=== PATIENT | male | born 1955 | race Caucasian/White ===

== ENCOUNTER 2019-09-12 06:24 | Day surgery (SDC) | payer OTHER ==
[2019-09-10 10:05] VITALS: BMI 23.3
[~2019-09-12 06:24] MED LIST: ALPRAZolam 0.25 MG TAB PO PRN; ALPRAZolam 0.5 MG TAB PO PRN; ASPIRIN 325 MG TAB PO STA; NITROGLYCERIN SL TABS 0.4 MG TAB SUBLINGUAL PRN; SODIUM CHLORIDE 0.9% 1,000 ML in EMPTY BAG 1 BAG IV ONE
[2019-09-12] MEDS ORDERED: SODIUM CHLORIDE 0.9% 1,000 ML IV ONE (07:00)
[2019-09-12 07:15] VITALS: RESP 16; TEMP 97.7
[2019-09-12] MEDS ORDERED: fentaNYL (PF) 50 MCG/ML 2 ML AMP ONE (07:23)
[2019-09-12] MEDS ORDERED: fentaNYL (PF) 50 MCG/ML 2 ML AMP IV ONE (07:36)
[2019-09-12] MEDS ORDERED: LIDOCAINE 1% INJ 10MG/ML (20 ML MDV) SQ ONE (07:45)
[2019-09-12] MEDS: VERAPAMIL SYRINGE (5 MG/10 ML) INTRAARTER ONE ×2 (07:47→08:05)
[2019-09-12] MEDS ORDERED: HEPARIN SODIUM 1,000 UN/ML (10ML VL) ONE (07:58)
[2019-09-12] MEDS ORDERED: HEPARIN SODIUM 1,000 UN/ML (10ML VL) IV ONE (08:02)
[2019-09-12] MEDS ORDERED: IOPAMIDOL-370 100ML BTL INJ ONE (08:06)
[2019-09-12] MEDS ORDERED: RX INFO: IV CONTRAST WAS GIVEN 1 EACH MISC MISCELLANE PRN (08:21)
[2019-09-12] MEDS ORDERED: SODIUM CHLORIDE 0.9% 1,000 ML IV SCH (08:30)
[2019-09-12] MEDS ORDERED: AMIODARONE 200 MG TAB PO SCH (09:00)
[2019-09-12] MEDS ORDERED: METOPROLOL TARTRATE 25 MG TAB PO SCH (09:00)
[2019-09-12] MEDS ORDERED: ASPIRIN 81 MG PO SCH (09:00)
[2019-09-12] MEDS ORDERED: BENAZEPRIL HCL 20 MG PO SCH (09:00)
--- NOTE | 2019-09-12 09:30 | CC ---
CARDIAC CATHETERIZATION REPORT Mr. Humphreys is a 64-year-old male with no prior history of documented coronary artery disease who presented recently with evidence of congestive heart failure and severe cardiomyopathy. In view of that, recommendation made regarding cardiac catheterization. The procedures, risks, and complication were discussed with the patient, who is in full understanding and agreement. PROCEDURE: Patient was brought to slab tripper in a fasting semi-sedated state after receiving fentanyl and Benadryl and achieving moderate conscious sedated state. Using Xylocaine anesthesia and Seldinger technique, a 6-Scottish sheath was introduced in the right radial artery. Selective right and left coronary angiography performed using 5-Scottish 3.5 bend right and left Kandis catheter, multiple views of the coronary artery including hemiaxial views obtained. Following that, a 5-Scottish tight pigtail catheter was introduced in the left ventricle and a 30-degree SOOD view of the left ventricle was obtained. Following that, catheter and sheath were removed. Hemostasis was obtained with deployment of a TR band. There was no immediate complication. Patient is returned to his room in stable condition. Of note, the patient received 4000 units of intravenous heparin as well as intra-arterial verapamil. FINDINGS: LEFT MAIN: This is a short size vessel, large in caliber, bifurcating into left circumflex, left anterior descending artery. Left main coronary artery has no evidence of high-grade stenosis. LEFT ANTERIOR DESCENDING ARTERY: This is a large-sized vessel, reaching toward the apex. Tapers down distal third, giving rise to 2 diagonal branches. The left anterior descending artery as well as branches have no evidence of obstructive coronary artery disease. LEFT CIRCUMFLEX: This is a nondominant large size vessel, giving rise to 3 obtuse marginal branches, the second and third one are the largest in caliber. The left circumflex as well as branches have no evidence of obstructive coronary artery disease. RIGHT CORONARY ARTERY: This is a moderately-sized, dominant vessel bifurcating into PDA and posterolateral segment and branches. The right coronary artery as well as branches have no evidence of obstructive coronary artery disease. LEFT VENTRICULOGRAM: Left ventriculogram was performed in 30-degree SOOD view and revealed dilated left ventricle with severe global hypokinesis. The estimated ejection fraction is 15%. There was no significant mitral regurgitation. HEMODYNAMICS: There was no gradient across the aortic valve. The left ventricular end- diastolic pressure was 20-24 mmHg. CONCLUSION: 1. Normal coronary arteries. 2. Severely impaired left ventricular systolic function. RECOMMENDATION: In view of finding anatomy, I recommend to continue present medical therapy with optimizing his treatment and re-evaluating his left ventricular systolic function and if there is no improvement, the patient will be a candidate for ICD implantation. Those findings and recommendation were discussed with the patient and his family and they are in full understanding and agreement. Duration of procedure is 22 minutes. LAUREN / DUNG: [id number] /
--- NOTE | 2019-09-12 09:30 | LTR ---
DATE OF SERVICE: 09/12/2019 RE: Carlos Humphreys Dear Dr. Mejía; I had the pleasure to perform cardiac catheterization on Mr. Humphreys at [facility] on September 12, 2019 and a fully copy of the procedure note will be forwarded to you. In brief, he was found to have no evidence of obstructive coronary artery disease with severely impaired left ventricular systolic function, consistent with nonischemic cardiomyopathy. At this time, I will continue to maximize his treatment and if there is no improvement in his left ventricular systolic function, he will be candidate to undergo ICD Bi V implantation. I will keep you updated on his progress and thank you again for allowing me to participate in this patient's personal care. Please feel free to call for any questions. Sincerely yours, MD LAUREN Rogers / DUNG: [id number] /
[2019-09-12 11:44] VITALS: BP 101/62; PULSE 59
[2019-09-12] MEDS ORDERED: SPIRONOLACTONE 25 MG TAB PO SCH (13:30)
[2019-09-12] MEDS ORDERED: PRAVASTATIN SODIUM 20 MG TAB PO SCH (21:00)
== END 2019-09-12 11:47 | disposition home or self-care (01) ==
LOC: CATHCVL 06:24
PROVIDERS: ATTEND Internal Medicine Interventional Cardiology
DX: I11.0 Hypertensive heart disease with heart failure (principal); I50.22 Chronic systolic (congestive) heart failure; I42.8 Other cardiomyopathies; R06.00 Dyspnea, unspecified; R60.9 Edema, unspecified; E78.2 Mixed hyperlipidemia; Z82.49 Family history of ischemic heart disease and other diseases of the circulatory system; H40.9 Unspecified glaucoma; H31.8 Other specified disorders of choroid; H35.30 Unspecified macular degeneration; Z87.891 Personal history of nicotine dependence; Z79.82 Long term (current) use of aspirin; Z79.899 Other long term (current) drug therapy
CPT/HCPCS: 93458; C1769 ×2; C1894; J2001; J3010; J1644; Q9967

== ENCOUNTER → 2020-01-29 | Outpatient (CLI) | payer OTHER ==
[2020-01-29 16:23] LABS: HCT 42.4 % (39.0-53.0); HGB 14.3 gm/dL (13.0-17.5); MCHC 33.6 g/dL (31.0-37.0); MCV 100.9 fL (80.0-100.0); Mean Platelet Volume 7.1; Platelet Count 286 k/uL (150-450); RDW 12.9 % (11.5-15.5); WBC 8.7 k/uL (3.8-10.6)
[2020-01-29 17:52] LABS: Magnesium 1.9 mg/dL (1.6-2.3); Potassium 5.3 mmol/L (3.5-5.1)
== END | disposition home or self-care (01) ==
LOC: LABPAT 16:04
PROVIDERS: ATTEND Internal Medicine Clinical Cardiac Electrophysiology
DX: Z01.818 Encounter for other preprocedural examination (principal); I42.8 Other cardiomyopathies
CPT/HCPCS: 80051; 82565; 83735; 84520; 85027

== ENCOUNTER 2020-02-02 11:54 | Day surgery (SDC) | payer OTHER ==
[2020-01-30 09:31] VITALS: BMI 22.2
[~2020-02-02 11:54] MED LIST changes: -ALPRAZolam 0.25 MG TAB PO PRN; -ALPRAZolam 0.5 MG TAB PO PRN; -ASPIRIN 325 MG TAB PO STA; -NITROGLYCERIN SL TABS 0.4 MG TAB SUBLINGUAL PRN; +SODIUM CHLORIDE 0.9% 1,000 ML IV SCH; -SODIUM CHLORIDE 0.9% 1,000 ML in EMPTY BAG 1 BAG IV ONE
[2020-02-02] MEDS ORDERED: SODIUM CHLORIDE 0.9% 1,000 ML IV ONE (12:23)
[2020-02-02] MEDS ORDERED: ceFAZolin 1,000 MG in SODIUM CHLORIDE 0.9% IRRIGATIO 250 ML IRRIGATION ONE (14:00)
[2020-02-02] MEDS ORDERED: PHENYLEPHRINE 10 MG/ML VIAL ONE (15:16)
[2020-02-02] MEDS ORDERED: fentaNYL (PF) 50 MCG/ML 2 ML AMP ONE (15:16)
[2020-02-02] MEDS ORDERED: PROPOFOL 10 MG/ML 20 ML VIAL IV ONE (15:16)
[2020-02-02] MEDS ORDERED: MIDAZOLAM 2 MG/2 ML VIAL ONE (15:16)
[2020-02-02] MEDS ORDERED: IOPAMIDOL-250 50ML BTL IV ONE (15:29)
[2020-02-02] MEDS ORDERED: LIDOCAINE 1% INJ 10MG/ML (20 ML MDV) ONE (15:42)
[2020-02-02] MEDS ORDERED: LIDOCAINE 1% INJ 10MG/ML (20 ML MDV) IV ONE (16:01)
[2020-02-02] MEDS ORDERED: LIDOCAINE 1% INJ 10MG/ML (20 ML MDV) SQ ONE ×2 (16:01→16:32)
[2020-02-02] MEDS ORDERED: ACETAMINOPHEN IV (For NPO) 1,000 MG in EMPTY BAG 1 BAG IVPB ONE (17:05)
[2020-02-02] MEDS ORDERED: ACETAMINOPHEN TAB 325 MG TAB PO PRN (18:05)
--- NOTE | 2020-02-02 18:44 | XR ---
EXAMINATION TYPE: XR chest 1V portable DATE OF EXAM: 02/02/2020 COMPARISON: NONE HISTORY: Check lead placement TECHNIQUE: Single view FINDINGS: Heart is normal. Lungs are clear of infiltrate. There is no heart failure. There is left ax illary pacemaker. There are chest leads. There is no pleural effusion. IMPRESSION: No active cardiopulmonary disease. Normal heart.
[2020-02-02 18:53] VITALS: RESP 18
--- NOTE | 2020-02-02 19:40 | CE ---
CARDIAC ELECTROPHYSIOLOGY REPORT Carlos Humphreys is a 64-year-old male patient with severe nonischemic cardiomyopathy, on medical treatment for greater than 3 months, but without improvement in LV systolic function. He also has a history of ventricular arrhythmias and is on oral amiodarone. He is brought in for a biventricular ICD implant for primary prevention of sudden cardiac and management of heart failure symptoms. He has an underlying wide QRS with a left bundle branch block. The patient was brought to the EP lab in a fasting state. Written informed consent was obtained prior to the procedure. The left shoulder area was prepped and draped as per protocol. Lidocaine 1% was used for local anesthesia. A 4 cm incision was made parallel to the deltopectoral groove, about 1.5 cm medial to it. The incision was carried down to the level of the pectoralis muscle. A subfascial pocket was made. Hemostasis was assured. The left axillary vein was accessed at 3 separate points under fluoroscopy, and via appropriately-sized introducer sheaths, leads were positioned in the right heart. The atrial lead was screwed into the right atrial appendage. The RV lead was screwed into the RV septum. This was a significantly qxzuvoy-gdcjoexlf-gyelzub heart, and RV lead placement was challenging, but it was performed successfully. Physiologic septal pacing was attempted and a distal site was selected for final positioning, and the lead was screwed in. Nonselective capture was noted. A proximal site was selected with a clear His signal selective capture but with a wide QRS without normalization of the QRS at the distal site. There was more normalization of the QRS with physiologic septal pacing/His bundle pacing. The actual QRS width was less than 120 milliseconds, but with being nonselective, there was an additional delta wave. The atrial lead was a Medtronic model #5076, 52 cm in length and serial #[id number], pacing threshold 0.9 V at 0.5 milliseconds, pacing impedance of 768 ohms, P-waves 1.8 mV. Ten-volt test was negative. The RV lead was a Medtronic model #6935M, 62 cm length and serial #[id number]. It was screwed in the septum. R-waves were 9.2 mV, pacing impedance 568 ohms and pacing threshold 0.6 V at 0.5 milliseconds. Ten-volt test was negative. The His bundle lead thresholds were 1.1 V at 1 millisecond, pacing impedance of 827 ohms. Nonselective capture was noted all along. The device implanted was a Medtronic biventricular ICD Amplia MRI, model #DTMB 1D4, serial #[id number]. The leads and the generator were then placed in the subfascial pocket. The wound was closed in 3 layers and dressed per protocol. RESULT: Successful biventricular ICD implantation with physiologic septal pacing and narrowing of the QRS with nonselective capture with excellent thresholds. ICD placement was challenging on account of significantly utrfgvc-hfrohuoil-qewgrqk heart, but it was performed successfully. Patient tolerated the procedure well without any acute complications. The device was then programmed to a VT zone of 176 beats per minute, VF zone at 214 beats per minute. Appropriate antitachycardia pacing, cardioversion and defibrillation were programmed. AV sequential pacing with physiologic septal pacing with rate responsiveness was programmed. MMODL / IJN: [id number] /
[2020-02-02 20:46] VITALS: TEMP 98
[2020-02-02 21:56] VITALS: BP 101/59; PULSE 66
== END 2020-02-02 22:37 | disposition home or self-care (01) ==
LOC: CATHEP 11:54 → 1SOBS 18:00 → CATHEP 22:37
PROVIDERS: ATTEND Internal Medicine Clinical Cardiac Electrophysiology
DX: I42.8 Other cardiomyopathies (principal); I49.3 Ventricular premature depolarization; I44.7 Left bundle-branch block, unspecified; I44.0 Atrioventricular block, first degree; I11.0 Hypertensive heart disease with heart failure; I50.22 Chronic systolic (congestive) heart failure; Q23.1 Congenital insufficiency of aortic valve; E78.5 Hyperlipidemia, unspecified; Z72.0 Tobacco use; Z79.82 Long term (current) use of aspirin; Z79.899 Other long term (current) drug therapy; Z82.49 Family history of ischemic heart disease and other diseases of the circulatory system; Z98.890 Other specified postprocedural states
CPT/HCPCS: 33225; 33249; 71045; C1769 ×5; C1892; C1887; C1898; C1895; C1882; J2250; J2370; J0690 ×2; J2001; J3010; J0131; J2704; Q9966

== ENCOUNTER 2020-05-14 12:30 | Emergency (ER) | payer OTHER ==
[2020-05-14 12:51] VITALS: RESP 18; TEMP 98.7
--- NOTE | 2020-05-14 14:59 | XR ---
EXAMINATION TYPE: XR chest 2V DATE OF EXAM: 05/14/2020 COMPARISON: 02/02/2020 INDICATION: Dizzy fall chills TECHNIQUE: Frontal and lateral views of the chest are obtained. FINDINGS: The heart size is normal. The pulmonary vasculature is normal. The lungs are clear. Pacemaker overlies the left chest. No pneumothorax is evident. No displaced rib fractures are identified. IMPRESSION: 1. No acute pulmonary process.
[2020-05-14 15:44] LABS: Albumin 4.7 g/dL (3.5-5.0); Calcium 9.4 mg/dL (8.4-10.2); Potassium 5.3 mmol/L (3.5-5.1); Total Bilirubin 1.2 mg/dL (0.2-1.3); Total Protein 8.1 g/dL (6.3-8.2)
[2020-05-14 15:48] LABS: Appearance,Urine Clear (Clear); Bilirubin,Urine Negative (Negative); Blood,Urine Negative (Negative); Color,Urine Yellow; Glucose,Urine (UA) Negative (Negative); Hyaline Casts,Urine 1 /lpf (0-2); Ketones,Urine Trace (Negative); Leukocyte Esterase,Urine Negative (Negative); Mucus,Urine Rare /hpf; Nitrite,Urine Negative (Negative); PH, Urine 5.5 (5.0-8.0); Protein,Urine 1+ (Negative); RBC,Urine 1 /hpf (0-5); Specific Gravity,Urine 1.021 (1.001-1.035); Squamous Epithelial Cell,Urine <1 /hpf (0-4); Urobilinogen,Urine <2.0 mg/dL (<2.0); WBC,Urine <1 /hpf (0-5)
[2020-05-14] MEDS ORDERED: ACETAMINOPHEN TAB 500 MG TAB PO STA (16:01)
[2020-05-14] MEDS ORDERED: ASPIRIN 325 MG TAB PO STA (16:01)
[2020-05-14 16:03] LABS: Basophils # (A) 0.1 k/uL (0-0.2); Basophils % (A) 2 %; Eosinophils % (A) 0 %; HCT 46.1 % (39.0-53.0); HGB 16.1 gm/dL (13.0-17.5); Lymphocytes # (A) 0.6 k/uL (1.0-4.8); Lymphocytes % (A) 11 %; MCH 33.2 pg (25.0-35.0); MCHC 34.9 g/dL (31.0-37.0); MCV 95.3 fL (80.0-100.0); Mean Platelet Volume 8.1; Monocytes # (A) 0.3 k/uL (0-1.0); Monocytes % (A) 6 %; Neutrophils % (A) 77 %; Platelet Count 224 k/uL (150-450); RBC 4.84 m/uL (4.30-5.90); RDW 12.4 % (11.5-15.5); WBC 5.2 k/uL (3.8-10.6)
--- NOTE | 2020-05-14 16:12 | ED ---
General Adult HPI - General Chief complaint: Dizziness Stated complaint: Dizziness Time Seen by Provider: 05/14/20 15:55 Source: patient, family, RN notes reviewed, old records reviewed Mode of arrival: wheelchair Limitations: no limitations - History of Present Illness Initial comments: 65-year-old male presents for evaluation of generalized weakness, fatigue, myalgias. Patient had felt somewhat dizzy and had a fall with minor head trauma approximately 2 days ago. He is seeking medical advice for this fall and his ongoing symptoms over the past 4 days. He has no specific chest pain. He has had a mild cough. Patient is uncertain if he's been exposed to coronavirus. No dyspnea, no recorded fever. - Related Data Home Medications Medication Instructions Recorded Confirmed Aspirin 81 mg PO DAILY 09/10/19 02/02/20 Benazepril HCl [Lotensin] 20 mg PO DAILY 09/10/19 02/02/20 Furosemide [Lasix] 20 mg PO DAILY 09/10/19 02/02/20 Pravastatin Sodium [Pravachol] 20 mg PO HS 09/10/19 02/02/20 Spironolactone [Aldactone] 12.5 mg PO DAILY@1500 09/10/19 02/02/20 Hypertonicity Eye Drops 1 drop BOTH EYES TID 01/30/20 02/02/20 Vit C/E/Zn/Coppr/Lutein/Zeaxan 1 each PO DAILY 01/30/20 02/02/20 [Preservision Areds 2 Softgel] Previous Rx's Medication Instructions Recorded Metoprolol Succinate (ER) [Toprol 50 mg PO DAILY #90 tab 02/02/20 XL] Allergies Allergy/AdvReac Type Severity Reaction Status Date / Time No Known Allergies Allergy Verified 05/14/20 12:48 Review of Systems ROS Statement: Those systems with pertinent positive or pertinent negative responses have been documented in the HPI. ROS Other: All systems not noted in ROS Statement are negative. 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 History of Any Multi-Drug Resistant Organisms: None Reported Past Surgical History: Heart Catheterization, Pacemaker Additional Past Surgical History / Comment(s): colonoscopy Past Anesthesia/Blood Transfusion Reactions: No Reported Reaction Past Psychological History: No Psychological Hx Reported Smoking Status: Former smoker Past Alcohol Use History: Occasional Past Drug Use History: None Reported - Past Family History Mother Family Medical History: No Reported History General Exam Limitations: no limitations General appearance: alert, in no apparent distress Head exam: Present: atraumatic, normocephalic Eye exam: Present: normal appearance, PERRL ENT exam: Present: other (. Abrasion over the bridge of the nose) Neck exam: Present: normal inspection. Absent: tenderness, meningismus Respiratory exam: Present: respiratory distress (Mild tachypnea) Cardiovascular Exam: Present: regular rate, normal rhythm GI/Abdominal exam: Present: soft. Absent: distended, tenderness, guarding, rebound Extremities exam: Present: normal inspection, normal capillary refill. Absent: pedal edema, calf tenderness Neurological exam: Present: alert, oriented X3, CN II-XII intact. Absent: motor sensory deficit Psychiatric exam: Present: normal affect, normal mood Skin exam: Present: warm, dry, intact. Absent: cyanosis, diaphoretic Course Vital Signs 05/14/20 05/14/20 12:48 16:50 Temperature 98.7 F Pulse Rate 98 80 Respiratory 18 18 Rate Blood Pressure 100/75 97/69 O2 Sat by Pulse 97 99 Oximetry EKG Findings - EKG Comments: EKG Findings:: Atrial sensed ventricular paced rhythm rate of 83, NJ interval 216, QRS duration 144, QTC 491 Medical Decision Making - Medical Decision Making 64-year-old male with dizziness, generalized weakness and fatigue. Patient does test positive for coronavirus. Symptoms onset was about 4 days ago. He had a minor fall but did have an abrasion over his nose. Head CT is performed which i s negative for intracranial hemorrhage or mass effect. Chest x-ray negative for pneumonia, no acute findings, no pulmonary edema. EKG is paced rhythm with a history of a nonischemic cardiomyopathy status post pacemaker defibrillator. He has a normal CBC, stable CK D with a creatinine 1.66. He has a minimal troponin elevation of 0.05 with no active chest pain. I did discuss the elevated tropon in and clinical presentation of this patient with Dr. Black covering for cardiology. Given that the patient had a cardiac catheterization in August 2019 which showed no coronary artery disease is felt that this patient would benefit more from monoclonal antibody and discharged home with return parameters that admission. Patient is agreeable with this plan and prefers discharge. He's instructed on the risks of monoclonal antibody and will be transfused in the emergency department. He will monitor his breathing. Return with any change in his respiratory status. - Lab Data Result diagrams: 05/14/20 15:20 05/14/20 15:20 Lab Results 05/14/20 05/14/20 05/14/20 Range/Units 12:53 15:20 15:20 WBC 5.2 (3.8-10.6) k/uL RBC 4.84 (4.30-5.90) m/uL Hgb 16.1 (13.0-17.5) gm/dL Hct 46.1 (39.0-53.0) % MCV 95.3 (80.0-100.0) fL MCH 33.2 (25.0-35.0) pg MCHC 34.9 (31.0-37.0) g/dL RDW 12.4 (11.5-15.5) % Plt Count 224 (150-450) k/uL MPV 8.1 Neutrophils % 77 % Lymphocytes % 11 % Monocytes % 6 % Eosinophils % 0 % Basophils % 2 % Neutrophils # 4.0 (1.3-7.7) k/uL Lymphocytes # 0.6 L (1.0-4.8) k/uL Monocytes # 0.3 (0-1.0) k/uL Eosinophils # 0.0 (0-0.7) k/uL Basophils # 0.1 (0-0.2) k/uL Sodium 133 L (137-145) mmol/L Potassium 5.3 H (3.5-5.1) mmol/L Chloride 97 L (98-107) mmol/L Carbon Dioxide 24 (22-30) mmol/L Anion Gap 12 mmol/L BUN 44 H (9-20) mg/dL Creatinine 1.66 H (0.66-1.25) mg/dL Est GFR (CKD-EPI)AfAm 50 (>60 ml/min/1.73 sqM) Est GFR (CKD-EPI)NonAf 43 (>60 ml/min/1.73 sqM) Glucose 112 H (74-99) mg/dL Plasma Lactic Acid Walter (0.7-2.0) mmol/L Calcium 9.4 (8.4-10.2) mg/dL Total Bilirubin 1.2 (0.2-1.3) mg/dL AST 47 (17-59) U/L ALT 33 (4-49) U/L Alkaline Phosphatase 76 (38-126) U/L Troponin I (0.000-0.034) ng/mL Total Protein 8.1 (6.3-8.2) g/dL Albumin 4.7 (3.5-5.0) g/dL Urine Color Urine Appearance (Clear) Urine pH (5.0-8.0) Ur Specific Chester (1.001-1.035) Urine Protein (Negative) Urine Glucose (UA) (Negative) Urine Ketones (Negative) Urine Blood (Negative) Urine Nitrite (Negative) Urine Bilirubin (Negative) Urine Urobilinogen (<2.0) mg/dL Ur Leukocyte Esterase (Negative) Urine RBC (0-5) /hpf Urine WBC (0-5) /hpf Ur Squamous Epith Cells (0-4) /hpf Hyaline Casts (0-2) /lpf Urine Mucus (None) /hpf Coronavirus (PCR) Detected A (Not Detectd) 05/14/20 05/14/20 05/14/20 Range/Units 15:20 15:20 15:24 WBC (3.8-10.6) k/uL RBC (4.30-5.90) m/uL Hgb (13.0-17.5) gm/dL Hct (39.0-53.0) % MCV (80.0-100.0) fL MCH (25.0-35.0) pg MCHC (31.0-37.0) g/dL RDW (11.5-15.5) % Plt Count (150-450) k/uL MPV Neutrophils % % Lymphocytes % % Monocytes % % Eosinophils % % Basophils % % Neutrophils # (1.3-7.7) k/uL Lymphocytes # (1.0-4.8) k/uL Monocytes # (0-1.0) k/uL Eosinophils # (0-0.7) k/uL Basophils # (0-0.2) k/uL Sodium (137-145) mmol/L Potassium (3.5-5.1) mmol/L Chloride (98-107) mmol/L Carbon Dioxide (22-30) mmol/L Anion Gap mmol/L BUN (9-20) mg/dL Creatinine (0.66-1.25) mg/dL Est GFR (CKD-EPI)AfAm (>60 ml/min/1.73 sqM) Est GFR (CKD-EPI)NonAf (>60 ml/min/1.73 sqM) Glucose (74-99) mg/dL Plasma Lactic Acid Walter 1.3 (0.7-2.0) mmol/L Calcium (8.4-10.2) mg/dL Total Bilirubin (0.2-1.3) mg/dL AST (17-59) U/L ALT (4-49) U/L Alkaline Phosphatase (38-126) U/L Troponin I 0.050 H* (0.000-0.034) ng/mL Total Protein (6.3-8.2) g/dL Albumin (3.5-5.0) g/dL Urine Color Yellow Urine Appearance Clear (Clear) Urine pH 5.5 (5.0-8.0) Ur Specific Chester 1.021 (1.001-1.035) Urine Protein 1+ H (Negative) Urine Glucose (UA) Negative (Negative) Urine Ketones Trace H (Negative) Urine Blood Negative (Negative) Urine Nitrite Negative (Negative) Urine Bilirubin Negative (Negative) Urine Urobilinogen <2.0 (<2.0) mg/dL Ur Leukocyte Esterase Negative (Negative) Urine RBC 1 (0-5) /hpf Urine WBC <1 (0-5) /hpf Ur Squamous Epith Cells <1 (0-4) /hpf Hyaline Casts 1 (0-2) /lpf Urine Mucus Rare H (None) /hpf Coronavirus (PCR) (Not Detectd) Disposition Clinical Impression: COVID-19, Elevated troponin Disposition: HOME SELF-CARE Condition: Fair Instructions (If sedation given, give patient instructions): Dizziness (ED), Coronavirus Disease 2019 (COVID-19) Is patient prescribed a controlled substance at d/c from ED?: No Referrals: Milton Mejía MD [Primary Care Provider] - 1-2 days Oswaldo Soto MD [STAFF PHYSICIAN] - 1-2 days Time of Disposition: 17:23
[2020-05-14] MEDS ORDERED: SODIUM CHLORIDE 0.9% 1,000 ML IV SCH (16:15)
--- NOTE | 2020-05-14 17:11 | CT ---
EXAMINATION TYPE: CT brain aly mendes con DATE OF EXAM: 05/14/2020 COMPARISON: None HISTORY: fall, nasal laceration CT DLP: 1314.6 mGycm Automated exposure control for dose reduction was used. Ventricles have normal size. There is no mass effect nor midline shift. There is no sign of intracran ial hemorrhage. There is 8mm area of hypodensity in the medial left thalamus. Calvarium is intact. Th e skull base is intact. There is fairly normal aeration of the mastoid sinuses. There is some straightening of the cervical spine. There is narrowing of the 5 6 and C6-7 disc spaces with spur formation. There is anterior osteophyte formation also at C4-5. There is multilevel cervic al facet arthropathy more noticeable on the left side. There is no cervical spine compression fractur e. IMPRESSION: Spondylotic changes in the cervical spine. No fracture. Small old lacunar infarct left thalamus. No acute intracranial abnormality.
[2020-05-14] MEDS ORDERED: BAMLANIVIMAB (EUA) 700 MG, ETESEVIMAB (EUA) 1,400 MG in SODIUM CHLORIDE 0.9% 50 ML IVPB ONE (18:15)
[2020-05-14 19:49] VITALS: BP 102/78; PULSE 88
== END 2020-05-14 19:49 | disposition home or self-care (01) ==
LOC: EC 12:30
DX: U07.1 COVID-19 (principal); R79.89 Other specified abnormal findings of blood chemistry; S00.31XA Abrasion of nose, initial encounter; I50.9 Heart failure, unspecified; I11.0 Hypertensive heart disease with heart failure; E78.5 Hyperlipidemia, unspecified; M19.90 Unspecified osteoarthritis, unspecified site; H40.9 Unspecified glaucoma; Z87.891 Personal history of nicotine dependence; Z79.899 Other long term (current) drug therapy; Z79.82 Long term (current) use of aspirin; W18.30XA Fall on same level, unspecified, initial encounter
CPT/HCPCS: 36415; 93005; 80053; 83605; 84484; 85025; 81001; 87635; 71046; 72125; 70450; 99285; 96374; Q0245

== ENCOUNTER 2020-06-24 09:39 | Day surgery (SDC) | payer OTHER ==
[2020-06-21 14:40] VITALS: BMI 22.5
[2020-06-24] MEDS ORDERED: SODIUM CHLORIDE 0.9% 500 ML 500 ML IV ONE (10:28)
[2020-06-24 10:31] VITALS: BP 127/85; PULSE 73; RESP 16; TEMP 98.6
[2020-06-24] MEDS ORDERED: IOPAMIDOL-250 50ML BTL IV ONE (10:46)
--- NOTE | 2020-08-05 09:21 | P.EPPROC ---
- EP Procedure Note Electrophysiology Procedure Note: Diagnosis High thresholds in the history withcapture Cinefluoroscopy of the leads Cinefluoroscopy of the leads was performed The atrial lead was in a stable position in the right atrial appendage RV lead was screwed in the RV septum This Jacob of the His bundle lead was noted Left upper extremity venogram was performed 50 mL IV dye injected in the left arm A patent left axillary subclavian and innominate vein was noted Plan Extraction of the His bundle lead Implantation of an LV lead, quadripolar Generator change for a biventricular ICD
== END 2020-06-24 11:26 | disposition home or self-care (01) ==
LOC: CATHEP 09:39
PROVIDERS: ATTEND Internal Medicine Clinical Cardiac Electrophysiology
DX: I42.8 Other cardiomyopathies (principal); I11.0 Hypertensive heart disease with heart failure; I50.22 Chronic systolic (congestive) heart failure; Q23.1 Congenital insufficiency of aortic valve; Z20.822 Contact with and (suspected) exposure to COVID-19; Z95.810 Presence of automatic (implantable) cardiac defibrillator; Z79.82 Long term (current) use of aspirin; Z79.899 Other long term (current) drug therapy
CPT/HCPCS: 36005; 75820; 87635; Q9966

== ENCOUNTER 2020-08-05 06:56 | Day surgery (SDC) | payer OTHER ==
[2020-08-03 14:17] VITALS: BMI 22.9
[~2020-08-05 06:56] MED LIST changes: +LACTATED RINGERS 1,000 ML IV SCH
[2020-08-05] MEDS ORDERED: ceFAZolin 1 GM in SODIUM CHLORIDE 0.9% 250 ML IRRIGATION PRN (07:00)
[2020-08-05] MEDS ORDERED: SODIUM CHLORIDE 0.9% 500 ML 500 ML IV ONE ×2 (07:10→10:42)
[2020-08-05] MEDS ORDERED: LIDOCAINE 1% INJ 10MG/ML (20 ML MDV) ONE ×2 (08:13)
[2020-08-05] MEDS ORDERED: fentaNYL (PF) 50 MCG/ML 2 ML AMP ONE (08:55)
[2020-08-05] MEDS ORDERED: MIDAZOLAM 2 MG/2 ML VIAL ONE (08:55)
[2020-08-05] MEDS ORDERED: PROPOFOL 10 MG/ML 20 ML VIAL IV ONE (08:55)
[2020-08-05 08:59] VITALS: RESP 16; TEMP 97.7
[2020-08-05] MEDS ORDERED: VANCOMYCIN 1,000 MG in SODIUM CHLORIDE 0.9% 250 ML IVPB STA (09:20)
[2020-08-05] MEDS ORDERED: LIDOCAINE 1% INJ 10MG/ML (20 ML MDV) SQ ONE (09:42)
[2020-08-05] MEDS ORDERED: IOPAMIDOL-250 50ML BTL IV ONE (10:14)
[2020-08-05] MEDS: IOPAMIDOL-250 50ML BTL IV ONE ×2 (10:14→10:29)
[2020-08-05] MEDS ORDERED: ACETAMINOPHEN IV (For NPO) 1,000 MG in EMPTY BAG 1 BAG IVPB ONE (12:41)
[2020-08-05] MEDS ORDERED: ACETAMINOPHEN TAB 325 MG TAB PO PRN (12:41)
--- NOTE | 2020-08-05 13:24 | XR ---
EXAMINATION TYPE: XR chest 1V portable DATE OF EXAM: 08/05/2020 Comparison: 05/14/2020 Clinical History: 65-year-old male Lead placement check Findings: Left anterior chest wall AICD generator with right atrial, right ventricular, and coronary sinus lead s. Heart upper limits of normal in size. There is rightward patient rotation altering the normal card iac mediastinal contours. No consolidation, pneumothorax, or pleural effusion. Impression: Left anterior chest wall 3-lead AICD generator. Borderline heart size. No acute process seen.
[2020-08-05 13:44] VITALS: BP 126/74; PULSE 66
[2020-08-05] MEDS ORDERED: SPIRONOLACTONE 25 MG TAB PO SCH (15:00)
--- NOTE | 2020-08-05 17:24 | CE ---
CARDIAC ELECTROPHYSIOLOGY REPORT Carlos Humphreys is a 65-year-old male patient who has a biventricular ICD with His bundle pacing. Initially he had excellent thresholds in the His bundle, but subsequently there was loss of capture. We confirmed a late dislodgement of the lead. He is brought in for extraction of the His bundle lead, implantation of LV lead. Patient was brought to the EP lab in a fasting state. Written informed consent was obtained prior to the procedure. IV antibiotics were administered preoperatively. Local anesthesia was given. The incision was made directly over the previous surgical site and carried down to the level of the generator. The generator was explanted. His bundle lead was extracted and a puncture site was oversewn to prevent backbleeding. Left upper extremity venogram was performed and axillary vein access was obtained at the 2nd rib level. Via this a sheath was placed and a coronary sinus catheter was placed in the coronary sinus. The coronary sinus was accessed. A venogram of the coronary sinus was performed. He had a very diminutive anterior veins, a large lateral vein, smaller anterolateral vein and middle cardiac vein. First Medtronic LV screw-in lead was placed in the large lateral vein. However, diaphragmatic stimulation was noted along in its distal aspect. The lead was withdrawn more proximally, but the thresholds were very high proximally. Different branches within this lateral vein were sub selected. At least 3 different branches was sub selected, but diaphragmatic stimulation was noted at all sites. Distally in the vein, the thresholds were excellent, but had diaphragmatic stimulation. Proximally in the vein, the thresholds were higher than 3 V at 0.5 milliseconds with intermittent diaphragmatic capture. Therefore, this lead was moved to the anterior vein but the anterior vein was not large enough to accommodate the LV lead. The anterior lateral vein was then cannulated. However, this was a short vein and the proximal pole was within the coronary sinus. Distally, the thresholds were excellent. The lead was screwed into this anterolateral vein and it remained stable at the end of the procedure after the sheath was removed. The old generator was explanted. The new generator was implanted. This was a Medtronic amply MRI quadripolar device model number [id number] serial number [id number]. The leads and generator were then placed in subfascial pocket. The wound was closed in 3 layers and dressed per protocol. DFT testing was not performed at this time. The LV lead used was model #4798, 78 cm in length and serial #[id number]. The patient tolerated the procedure well without any acute complications. PLAN: DFT testing after 3 months. IV antibiotics postoperatively. Continue current cardiac medication. MMODL / IJN: [id number] /
[2020-08-05] MEDS ORDERED: PRAVASTATIN SODIUM 20 MG TAB PO SCH (21:00)
[2020-08-06] MEDS ORDERED: METOPROLOL SUCCINATE (ER) 50 MG TAB.ER.24H PO SCH (09:00)
[2020-08-06] MEDS ORDERED: FUROSEMIDE 20 MG TAB PO SCH (09:00)
[2020-08-06] MEDS ORDERED: BENAZEPRIL HCL 40 MG PO SCH (09:00)
[2020-08-06] MEDS ORDERED: ASPIRIN 81 MG PO SCH (09:00)
== END 2020-08-05 16:00 | disposition home or self-care (01) ==
LOC: CATHEP 06:56
PROVIDERS: ATTEND Internal Medicine Clinical Cardiac Electrophysiology
DX: T82.190A Other mechanical complication of cardiac electrode, initial encounter (principal); Y83.8 Other surgical procedures as the cause of abnormal reaction of the patient, or of later complication, without mention of misadventure at the time of the procedure; I42.8 Other cardiomyopathies; I11.0 Hypertensive heart disease with heart failure; I50.22 Chronic systolic (congestive) heart failure; Z20.822 Contact with and (suspected) exposure to COVID-19; E78.5 Hyperlipidemia, unspecified; I44.0 Atrioventricular block, first degree; Z82.49 Family history of ischemic heart disease and other diseases of the circulatory system; F17.210 Nicotine dependence, cigarettes, uncomplicated; I44.7 Left bundle-branch block, unspecified; Q23.1 Congenital insufficiency of aortic valve; Z79.82 Long term (current) use of aspirin; Z79.899 Other long term (current) drug therapy
CPT/HCPCS: 33225; 33249; 33234; 87635; 71045; C1769 ×3; C1892; C1730; C1887; C1882; J2250; J3370; J0690; J2001; J3010; J2704; Q9966

== ENCOUNTER 2020-12-23 06:01 | Day surgery (SDC) | payer OTHER ==
[2020-12-21 12:05] VITALS: BMI 22.9
[2020-12-23] MEDS ORDERED: SODIUM CHLORIDE 0.9% 500 ML 500 ML IV ONE (06:30)
[2020-12-23 06:40] VITALS: TEMP 98.2
[2020-12-23] MEDS ORDERED: MIDAZOLAM 2 MG/2 ML VIAL ONE (07:13)
[2020-12-23] MEDS ORDERED: PROPOFOL 10 MG/ML 20 ML VIAL IV ONE (07:13)
[2020-12-23] MEDS ORDERED: LIDOCAINE 1% INJ 10MG/ML (20 ML MDV) ONE (07:13)
[2020-12-23 07:19] LABS: Calcium 9.8 mg/dL (8.4-10.2); Potassium 4.7 mmol/L (3.5-5.1)
--- NOTE | 2020-12-23 07:43 | P.EPPROC ---
- EP Procedure Note Electrophysiology Procedure Note: Diagnosis Ischemic cardio myopathy Congestive heart failure Status post Metronic biventricular ICD Details Bi V ICD was interrogated Atrial pacing impedance 475 ohms, pacing threshold 1.2 V at 0.4 ms and P waves 1.8 mV RV pacing impedance 399 ohms, pacing threshold 0.8 V at 0.4 ms and R waves 7.4 mV LV pacing impedance 1140, threshold 0.9 V at 0.4 ms Defibrillation impedance 66 ohms Defibrillation level testing performed Shock and T wave protocol used to induce ventricular fibrillation This was adequately and appropriately detected at least sensitivity and successfully defibrillated with 10 J shock Charge time 1.9 seconds, shocking impedance 66 ohms No post shock noise No dropouts Device was then reprogrammed Appropriate antitachycardia pacing cardioversion and defibrillation programmed First cardioversion at 10 J First defibrillation 20 J Patient tolerated the procedure well without any acute complications
[2020-12-23 08:09] VITALS: RESP 16
[2020-12-23 08:38] VITALS: BP 96/58; PULSE 60
== END 2020-12-23 08:55 | disposition home or self-care (01) ==
LOC: CATHEP 06:01
PROVIDERS: ATTEND Internal Medicine Clinical Cardiac Electrophysiology
DX: Z45.02 Encounter for adjustment and management of automatic implantable cardiac defibrillator (principal); I25.5 Ischemic cardiomyopathy; I11.0 Hypertensive heart disease with heart failure; I50.22 Chronic systolic (congestive) heart failure; E78.2 Mixed hyperlipidemia; Z20.822 Contact with and (suspected) exposure to COVID-19; Z82.49 Family history of ischemic heart disease and other diseases of the circulatory system; Z72.0 Tobacco use; Q23.1 Congenital insufficiency of aortic valve; Z79.82 Long term (current) use of aspirin; Z79.899 Other long term (current) drug therapy
CPT/HCPCS: 93642; 80048; 87635; J2250; J2001; J2704

== ENCOUNTER → 2022-12-22 | Outpatient (CLI) | payer MEDICARE ==
[2022-12-22 14:58] LABS: African American GFR (CKD) 74 (>60 ml/min/1.73 sqM); Blood Urea Nitrogen 25 mg/dL (9-20); Non-African American GFR(CKD) 64 (>60 ml/min/1.73 sqM)
--- NOTE | 2022-12-27 07:55 | CT ---
EXAMINATION TYPE: CT angio chest DATE OF EXAM: 12/22/2022 COMPARISON: 08/05/2020 HISTORY: 67-year-old male R93.1, Thoracic aortic aneurysm. TECHNIQUE: Contiguous axial scanning of the chest performed without and with IV Contrast, patient inj ected with 100 ml mL of Isovue 370. Coronal/sagittal MIP reconstructions performed. 3-D reconstructio ns generated on a dedicated workstation. CT DLP: 542.4 mGycm Automated exposure control for dose reduction was used. FINDINGS: Left anterior chest wall AICD generator right atrial, right ventricular, and coronary sinus leads. The heart is normal size without pericardial effusion. No flattening of the interventricular septum. Small amount of contrast refluxing into the hepatic veins. Mild LAD coronary artery calcifications. Aortic root aneurysmal at 4.3 cm. Ascending aorta aneurysmal at 4.6 cm. Conventional arch vessel branching anatomy. Upper descending thoracic aorta ectatic at 3.1 cm. Lower descending thoracic aorta ectatic at 2.6 cm. No thoracic lymph adenopathy by CT size criteria. Trace bilateral gynecomastia. There is some strandy atelectasis or scarring within the lungs. Minimal emphysematous change. No cons olidation or pleural effusion. There may be an underlying small hiatal hernia containing mesenteric fat. Visualized upper abdomen sh ows an atrophic right kidney compared to the left side. Scattered colonic diverticulosis in the visua lized upper abdomen. Bones: DISH mid and lower thoracic spine. IMPRESSION: 1. ANEURYSMAL ASCENDING AORTA WITH THE ROOT MEASURING 4.3 CM AND ASCENDING PORTION MEASURING 4.6 CM. 2. COPD WITH MINIMAL EMPHYSEMA.
== END | disposition home or self-care (01) ==
LOC: RADCTMAIN 14:13
PROVIDERS: ATTEND Internal Medicine Interventional Cardiology
DX: I71.21 Aneurysm of the ascending aorta, without rupture (principal); J43.9 Emphysema, unspecified; R93.1 Abnormal findings on diagnostic imaging of heart and coronary circulation; Q21.3 Tetralogy of Fallot
CPT/HCPCS: 82565; 84520; 71275; 36415; Q9967

== ENCOUNTER 2023-01-03 12:24 | Day surgery (SDC) | payer MEDICARE ==
[2023-01-02 09:51] VITALS: BMI 25.5
[2023-01-03] MEDS ORDERED: LIDOCAINE 1% (10MG/ML) FOR IV START INTRADERMA PRN (13:47)
[2023-01-03] MEDS ORDERED: LACTATED RINGERS 1,000 ML IV SCH (13:47)
[2023-01-03 14:16] VITALS: TEMP 98.3
[2023-01-03] MEDS ORDERED: PROPOFOL 10 MG/ML 20 ML VIAL IV ONE (14:54)
--- NOTE | 2023-01-03 15:16 | P.PCN ---
Date of Procedure: 01/03/23 Procedure(s) Performed: BRIEF HISTORY: Patient is a 67-year-old pleasant white male scheduled for an elective colonoscopy as a part of screening for colon cancer/positive cologuard. PROCEDURE PERFORMED: Colonoscopy with snare polypectomy. PREOPERATIVE DIAGNOSIS: Screening for colon cancer/positive cologuard. IV sedation per Anesthesia. PROCEDURE: After informed consent was obtained, the patient, was brought into the endoscopy unit. IV sedation was administered by Anesthesia under continuous monitoring. Digital rectal examination was normal. Initially the Olympus CF-160 flexible video colonoscope was then inserted in the rectum, gradually advanced into the cecum without any difficulty. Careful examination was performed as the scope was gradually being withdrawn. Ileocecal valve and the appendiceal orifice were visualized and appeared normal. Prep was excellent. Mucosa of the cecum, ascending colon, appeared normal. In the descending colon there was a 1 cm polyp that was removed by snare polypectomy. Rest of the transverse colon, descending colon, sigmoid colon, and rectum appeared normal. Scattered left- sided diverticulosis seen. Retroflexion was performed in the rectum and no lesions were seen. The patient tolerated the procedure well. IMPRESSION: 1 cm descending colon polyp status post polypectomy Scattered small diverticulosis RECOMMENDATIONS: Findings of this examination were discussed with the patient as well as his family. He was advised to follow with the biopsy sites. If the biopsy results adenoma he can have a repeat colonoscopy in 3 years.
[2023-01-03 16:09] VITALS: BP 117/79; PULSE 82; RESP 18
== END 2023-01-03 16:02 | disposition home or self-care (01) ==
LOC: ORWHC2ENDO 12:24
PROVIDERS: ATTEND Internal Medicine Gastroenterology
DX: Z12.11 Encounter for screening for malignant neoplasm of colon (principal); K63.5 Polyp of colon; K57.30 Diverticulosis of large intestine without perforation or abscess without bleeding; R19.5 Other fecal abnormalities; I11.0 Hypertensive heart disease with heart failure; I43 Cardiomyopathy in diseases classified elsewhere; E78.5 Hyperlipidemia, unspecified; I63.9 Cerebral infarction, unspecified; Z79.83 Long term (current) use of bisphosphonates; Z79.899 Other long term (current) drug therapy; Z98.890 Other specified postprocedural states
CPT/HCPCS: 88305; 45385; J2704

== ENCOUNTER → 2023-04-24 | Outpatient (CLI) | payer MEDICARE ==
[2023-04-24 12:59] LABS: African American GFR (CKD) 67 (>60 ml/min/1.73 sqM); Blood Urea Nitrogen 25 mg/dL (9-20); Non-African American GFR(CKD) 58 (>60 ml/min/1.73 sqM)
--- NOTE | 2023-04-24 14:27 | CT ---
Exam: CT Angiography of the Chest. Date: 04/24/2023. Comparison: None History: Thoracic aortic aneurysm. Technique: CT examination of the chest was performed following the intravenous administration of 80 m L of Isovue-370. CT dose lowering techniques were used, to include: automated exposure control, adjus tment for patient size, and/or use of iterative reconstruction. FINDINGS: Mediastinum and Micaela: There is no axillary, mediastinal or hilar lymphadenopathy. Pleural and Pericardial spaces: There are no pleural or pericardial effusions. Upper Abdomen: There are atrophic changes of the right kidney. The visualized upper abdomen otherwise appears unremarkable. Cardiovascular: There is dilation of the ascending thoracic aorta up to 4.6 cm in diameter which is u nchanged from previous examination. There is no evidence of aortic dissection. Left-sided pacemaker g enerator has leads in the right atrium, right ventricle and coronary sinus. Pulmonary Artery: There are no filling defects in the pulmonary arteries. Lung Parenchyma and Airways: There is mild upper lobe predominant centrilobular and paraseptal emphys clyde. The lungs otherwise appear clear. Bones: No fracture or aggressive osseous lesion. IMPRESSION: 1. Dilation of the ascending thoracic aorta is unchanged. 2. No evidence of aortic dissection. 3. No evidence of pneumonia, pleural or pericardial effusions.
== END | disposition home or self-care (01) ==
LOC: RADCTMAIN 12:25
PROVIDERS: ATTEND Internal Medicine Interventional Cardiology
DX: I71.20 Thoracic aortic aneurysm, without rupture, unspecified (principal)
CPT/HCPCS: 82565; 84520; 71275; 36415; Q9967

== ENCOUNTER → 2024-04-23 | Outpatient (CLI) | payer MEDICARE | END | disposition home or self-care (01) | LOC: LABWHC1 10:03 | PROVIDERS: ATTEND Family Medicine | DX: I42.8 Other cardiomyopathies (principal); E78.2 Mixed hyperlipidemia | CPT/HCPCS: 36415; 83880 ==